=== PATIENT | male | born 1965 | race Caucasian/White ===

== ENCOUNTER 2017-08-15 08:38 | Emergency (ER) | payer SELFPAY ==
[~2017-08-15] VITALS: Ht 167.6 cm; Wt 99.8 kg
[~2017-08-15 08:38] MED LIST: CEPH-264 PO; LISI-334 PO; ONDA4TAB7 PO; RANI150T2 PO; SUCR1TAB35 PO
[2017-08-15] MEDS ORDERED: IV NORMAL SALINE 1,000ML 1,000 ML IV SCH (08:53)
--- NOTE | 2017-08-15 09:05 | PHYS DOC ---
Past History Past Medical History: Hypertension Past Surgical History: No Surgical History Smoking: Non-smoker Alcohol Use: None Drug Use: None Adult General Chief Complaint Chief Complaint: MULTIPLE COMPLAINTS HPI HPI Patient is a 52 year old male who presents with complaint of abdominal pain and bloody stools. Patient states that his abdominal pain and vomiting started approximately 3 days ago. Patient states that he has had history of bloody stools for the past year. Patient states that he had a colonoscopy completed within the last year which showed internal hemorrhoids and diverticulosis. Patient states that he has been treated for diverticulitis in the past. The patient states that he is currently having 9 out of 10 pain in his low back which she states is due to chronic bulging disc. Patient however is also having pain in his epigastrium which he rates as 8 out of 10. Patient states the pain in his back worsens with movement. Patient states that the blood in his stool is slightly more than usual for what he has had no past year. Review of Systems Review of Systems Constitutional: Denies fever or chills [] Eyes: Denies change in visual acuity, redness, or eye pain [] HENT: Denies nasal congestion or sore throat [] Respiratory: Denies cough or shortness of breath [] Cardiovascular: Denies chest pain or edema[] GI: Abdominal pain, nausea, vomiting, bloody stools[] : Denies dysuria or hematuria [] Musculoskeletal: Back pain[] Integument: Denies rash or skin lesions [] Neurologic: Denies headache, focal weakness or sensory changes [] Current Medications Current Medications Current Medications Medications (Trade) Dose Ordered Sig/[facility] Start Time Stop Time Status Last Admin Dose Admin Fentanyl Citrate (Fentanyl 2ml Vial) 50 mcg PRN Q15MIN PRN 08/15/17 09:00 08/16/17 08:59 Ondansetron HCl (Zofran) 4 mg 1X ONCE 08/15/17 09:15 08/15/17 09:16 Sodium Chloride 1,000 ml @ 1,000 mls/hr Q1H 08/15/17 08:53 08/15/17 09:52 Allergies Allergies Allergies Coded Allergies Type Severity Reaction Last Updated Verified No Known Drug Allergies 08/25/14 No Physical Exam Physical Exam Constitutional: Alert, afebrile, appears in moderate to severe discomfort. [] HENT: Normocephalic, atraumatic, bilateral external ears normal, oropharynx moist, no oral exudates, nose normal. [] Eyes: PERRLA, EOMI, conjunctiva normal, no discharge. [] Neck: Normal range of motion, no tenderness, supple, no stridor. [] Cardiovascular:Heart rate regular rhythm, no murmur [] Lungs & Thorax: Bilateral breath sounds clear to auscultation [] Abdomen: Bowel sounds normal, soft, mild epigastric tenderness to palpation, no guarding or rebound tenderness, no masses, no pulsatile masses. Rectal: Normal external exam, nontender on exam, brown stool, no visible blood[ ] Skin: Warm, dry, no erythema, no rash. [] Back: No midline tenderness, bilateral paraspinous muscle tenderness to palpation in the low lumbar spine. [] Extremities: No tenderness, no cyanosis, no clubbing, ROM intact, no edema. [] Neurologic: Alert and oriented X 3, normal motor function, normal sensory function, no focal deficits noted. [] Current Patient Data Vital Signs Vital Signs Date Time Temp Pulse Resp B/P (MAP) Pulse Ox O2 Delivery O2 Flow Rate FiO2 08/15/17 09:29 98.7 86 22 98 Room Air Lab Results Laboratory Tests Test 08/15/17 09:10 08/15/17 09:27 08/15/17 11:25 Stool Occult Blood Negative White Blood Count 12.7 x10^3/uL Red Blood Count 5.98 x10^6/uL Hemoglobin 17.4 g/dL Hematocrit 49.3 % Mean Corpuscular Volume 83 fL Mean Corpuscular Hemoglobin 29 pg Mean Corpuscular Hemoglobin Concent 35 g/dL Red Cell Distribution Width 13.4 % Platelet Count 377 x10^3/uL Neutrophils (%) (Auto) 72 % Lymphocytes (%) (Auto) 16 % Monocytes (%) (Auto) 10 % Eosinophils (%) (Auto) 1 % Basophils (%) (Auto) 1 % Neutrophils # (Auto) 9.1 x10^3uL Lymphocytes # (Auto) 2.1 x10^3/uL Monocytes # (Auto) 1.3 x10^3/uL Eosinophils # (Auto) 0.1 x10^3/uL Basophils # (Auto) 0.1 x10^3/uL Sodium Level 132 mmol/L Potassium Level 3.6 mmol/L Chloride Level 96 mmol/L Carbon Dioxide Level 27 mmol/L Anion Gap 9 Blood Urea Nitrogen 20 mg/dL Creatinine 1.3 mg/dL Estimated GFR (Cockcroft-Gault) 58.4 BUN/Creatinine Ratio 15 Glucose Level 166 mg/dL Calcium Level 9.5 mg/dL Total Bilirubin 1.6 mg/dL Aspartate Amino Transf (AST/SGOT) 14 U/L Alanine Aminotransferase (ALT/SGPT) 32 U/L Alkaline Phosphatase 71 U/L Total Protein 8.1 g/dL Albumin 3.9 g/dL Albumin/Globulin Ratio 0.9 Lipase 615 U/L Urine Collection Type Void Urine Color Caridad Urine Clarity Clear Urine pH 5.0 Urine Specific Annabella 1.015 Urine Protein Neg Urine Glucose (UA) Neg mg/dL Urine Ketones (Stick) 15 mg/dL Urine Blood Small Urine Nitrite Neg Urine Bilirubin Neg Urine Urobilinogen Dipstick 2 mg/dL Urine Leukocyte Esterase Neg Urine RBC Rare /HPF Urine WBC 1-4 /HPF Urine Squamous Epithelial Cells None /LPF Urine Bacteria 0 /HPF Urine Hyaline Casts Occ /HPF Urine Mucus Mod /LPF Current Medications Medications (Trade) Dose Ordered Sig/Renny Route PRN Reason Start Time Stop Time Status Last Admin Dose Admin Fentanyl Citrate (Fentanyl 2ml Vial) 50 mcg PRN Q15MIN PRN IV PAIN GREATER THAN 3/10 08/15/17 09:00 08/16/17 08:59 08/15/17 10:35 Sodium Chloride 1,000 ml @ 1,000 mls/hr Q1H IV 08/15/17 08:53 08/15/17 09:52 DC 08/15/17 09:10 Ondansetron HCl (Zofran) 4 mg 1X ONCE IV 08/15/17 09:15 08/15/17 09:16 DC 08/15/17 09:11 Sodium Chloride 1,000 ml @ 125 mls/hr 1X ONCE IV 08/15/17 10:45 08/15/17 18:44 Iohexol (Omnipaque 300 Mg/ml) 75 ml 1X ONCE IV 08/15/17 11:45 08/15/17 11:46 DC EKG EKG Not performed[] Radiology/Procedures Radiology/Procedures [address] [address] IMAGING REPORT Signed PATIENT: FABRIZIO KOTHARI ACCOUNT: [id number] : 1965 LOCATION: ER AGE: 52 SEX: M EXAM STATUS: REG ER ORD. PHYSICIAN: RADHA LITTLEJOHN MD REASON: abdominal pain, elevated lipase, leukocytosis PROCEDURE: CT ABD PELV W/ IV CONTRST ONLY Examination: CT of the abdomen pelvis with IV contrast History: History of elevated lipase, abdominal pain Comparison: 08/11/2014 Technique: Axial CT images of the abdomen pelvis were performed with IV contrast. Coronal and sagittal reformats were performed PQRS Compliance Statement: One or more of the following individualized dose reduction techniques were utilized for this examination: 1. Automated exposure control 2. Adjustment of the mA and/or kV according to patient size 3. Use of iterative reconstruction technique Findings: The visualized bibasal lungs grossly appears unremarkable. No evidence of free air identified in the abdomen. Mild decreased attenuation noted in the liver likely hepatic steatosis. The visualized spleen, adrenals grossly appears unremarkable. The bilateral kidneys enhance symmetrically. The stomach is mildly distended. The small bowel is nondilated. Appendix is normal. Mildly enlarged prostate gland. Feces and gas noted throughout the colon. Few sigmoid colon diverticulosis. Urinary bladder is well distended. No evidence of lytic or destructive lesion. Impression: 1. No CT evidence of pancreatitis. 2. Mild hepatic steatosis. 3. Few sigmoid colon diverticulosis. DICTATED AND SIGNED BY: URIEL ROY MD DATE: 08/15/17 1135 CC: RADHA LITTLJEOHN MD; ISAMAR FERRELL [address] [address] IMAGING REPORT Signed PATIENT: FABRIZIO KOTHARI ACCOUNT: [id number] : 1965 LOCATION: ER AGE: 52 SEX: M EXAM STATUS: REG ER ORD. PHYSICIAN: RADHA LITTLEJOHN MD REASON: epigastric pain, elevated lipase PROCEDURE: ABDOMEN LTD Examination: Ultrasound abdomen History: History of elevated lipase, epigastric pain Comparison: None available Findings: The pancreas is not visualized due to bowel gas. Bowel gas obscures evaluation of the aorta and IVC. No evidence of gallstones identified. The gallbladder wall thickness is normal. The common bile duct measures 2.6 mm in transverse dimension. Mild increased echogenicity noted throughout the liver likely hepatic steatosis. The right kidney measures 11.9 cm in length. Impression: 1. Mild increased echogenicity noted throughout the liver likely hepatic steatosis. 2. No evidence of gallstones. DICTATED AND SIGNED BY: URIEL ROY MD DATE: 08/15/17 1118 CC: RADHA LITTLEJOHN MD; [place] [address] IMAGING REPORT Signed PATIENT: FABRIZIO KOTHARI ACCOUNT: [id number] : 1965 LOCATION: ER AGE: 52 SEX: M EXAM STATUS: REG ER ORD. PHYSICIAN: RADHA LITTLEJOHN MD REASON: abdominal pain PROCEDURE: ACUTE ABDOMEN SERIES Examination: Acute abdomen series History: History of abdominal pain Comparison: 08/30/2014 Findings: The cardiomediastinal silhouette grossly appears unremarkable. There is no acute infiltrate or visualized pneumothorax. The bowel gas pattern appears unremarkable. Impression: 1. No acute cardiopulmonary findings. 2. Unremarkable bowel gas pattern. DICTATED AND SIGNED BY: URIEL ROY MD DATE: 08/15/17 0952 CC: RADHA LITTLEJOHN MD; ISAMAR FERRELL [] Course & Med Decision Making Course & Med Decision Making Pertinent Labs and Imaging studies reviewed. (See chart for details) Patient started on IV fluids, fentanyl, and Zofran. The patient's blood work showed mild leukocytosis and an elevated lipase level concerning for acute pancreatitis. Patient underwent additional advanced imaging including abdominal ultrasound and CT which did not reveal any notable acute findings. Etiology of acute pancreatitis is unclear at this time. On reevaluation, patient states his symptoms are improving at this time. Recommended that the patient continue on liquid diet and patient was prescribed Zofran, Pepcid, and Parker and advised follow-up with primary doctor in 1-2 days for reevaluation. Advised return emergency department for any worsening symptoms. Patient provided referral to Dr. Mitchell of GI to schedule follow-up in the next 1-2 weeks. Dragon Disclaimer Dragon Disclaimer This chart was dictated in whole or in part using Voice Recognition software in a busy, high-work load, and often noisy Emergency Department environment. It may contain unintended and wholly unrecognized errors or omissions. Departure Departure: Impression: Primary Impression: Acute pancreatitis Disposition: 01 HOME, SELF-CARE Condition: IMPROVED Referrals: ISAMAR FERRELL (PCP) BIANCA MITCHELL MD Patient Instructions: Acute Pancreatitis Additional Instructions: Follow-up in one to 2 days with your primary doctor for reevaluation. Return to the emergency department for any worsening symptoms. Scripts Famotidine (PEPCID) 20 Mg Tablet 1 TAB PO BID, #30 TAB 0 Refills Prov: RADHA LITTLEJOHN MD 08/15/17 Ondansetron (ZOFRAN ODT) 4 Mg Tab.rapdis 1 TAB SL Q6HRS Y for NAUSEA/VOMITING, #15 TAB Prov: RADHA LITTLEJOHN MD 08/15/17 Hydrocodone Bit/Acetaminophen (NORCO 5-325 TABLET) 1 Each Tablet 1-2 TAB PO Q4-6HRS Y for PAIN, #20 TAB Prov: RADHA LITTLEJOHN MD 08/15/17 Problem Qualifiers Primary Impression: Acute pancreatitis Pancreatitis type: other Acute pancreatitis complication: no infection or necrosis Qualified Codes: K85.80 - Other acute pancreatitis without necrosis or infection RADHA LITTLEJOHN MD Aug 15, 2017 09:05
[2017-08-15] MEDS ORDERED: ONDANSETRON PF 4 MG/2 ML VIAL. IV ONE (09:15)
[2017-08-15 09:22] LABS: FECAL OB PT NEGATIVE (NEG)
[2017-08-15 09:41] LABS: BASO # 0.1 x10^3/uL (0.0-0.2); BASO % 1 % (0-3); EOS # 0.1 x10^3/uL (0.0-0.7); EOS % 1 % (0-3); HEMATOCRIT 49.3 % (39.0-53.0); HEMOGLOBIN 17.4 g/dL (13.0-17.5); LYMPH # 2.1 x10^3/uL (1.0-4.8); LYMPH % 16 % (24-48); MEAN CORPUSCULAR HEMOGLOBIN 29 pg (25-35); MEAN CORPUSCULAR HGB CONC 35 g/dL (31-37); MEAN CORPUSCULAR VOLUME 83 fL (79-100); MONO # 1.3 x10^3/uL (0.0-1.1); MONO % 10 % (0-9); NEUT # 9.1 x10^3uL (1.8-7.7); NEUT % 72 % (31-73); PLATELET COUNT 377 x10^3/uL (140-400); RED BLOOD COUNT 5.98 x10^6/uL (4.30-5.70); RED CELL DISTRIBUTION WIDTH 13.4 % (11.5-14.5); WHITE BLOOD COUNT 12.7 x10^3/uL (4.0-11.0)
[2017-08-15 09:50] LABS: ALBUMIN 3.9 g/dL (3.4-5.0); ALBUMIN/GLOBULIN RATIO 0.9 (1.0-1.7); CALCIUM 9.5 mg/dL (8.5-10.1); CREATININE 1.3 mg/dL (0.7-1.3); GFR 58.4; POTASSIUM 3.6 mmol/L (3.5-5.1); TOTAL BILIRUBIN 1.6 mg/dL (0.2-1.0); TOTAL PROTEIN 8.1 g/dL (6.4-8.2)
--- NOTE | 2017-08-15 09:58 | RAD ---
Examination: Acute abdomen series History: History of abdominal pain Comparison: 08/30/2014 Findings: The cardiomediastinal silhouette grossly appears unremarkable. There is no acute infiltrate or visualized pneumothorax. The bowel gas pattern appears unremarkable. Impression: 1. No acute cardiopulmonary findings. 2. Unremarkable bowel gas pattern.
[2017-08-15] MEDS ORDERED: IV NORMAL SALINE 1,000ML 1,000 ML IV ONE (10:45)
--- NOTE | 2017-08-15 11:23 | RAD ---
Examination: Ultrasound abdomen History: History of elevated lipase, epigastric pain Comparison: None available Findings: The pancreas is not visualized due to bowel gas. Bowel gas obscures evaluation of the aorta and IVC. No evidence of gallstones identified. The gallbladder wall thickness is normal. The common bile duct measures 2.6 mm in transverse dimension. Mild increased echogenicity noted throughout the liver likely hepatic steatosis. The right kidney measures 11.9 cm in length. Impression: 1. Mild increased echogenicity noted throughout the liver likely hepatic steatosis. 2. No evidence of gallstones.
[2017-08-15 11:42] LABS: BACTERIA,URINE 0 /HPF (0-FEW); BILIRUBIN,URINE NEG (NEG); CLARITY,URINE CLEAR; COLOR,URINE AMBER; GLUCOSE,URINE NEG (NEG); NITRITE,URINE NEG (NEG); RBC,URINE RARE /HPF (0-2); UROBILINOGEN,URINE 2 mg/dL (0.2 mg/dL)
[2017-08-15 11:43] LABS: HYALINE CASTS, URINE OCC /HPF
--- NOTE | 2017-08-15 11:44 | RAD ---
Examination: CT of the abdomen pelvis with IV contrast History: History of elevated lipase, abdominal pain Comparison: 08/11/2014 Technique: Axial CT images of the abdomen pelvis were performed with IV contrast. Coronal and sagittal reformats were performed PQRS Compliance Statement: One or more of the following individualized dose reduction techniques were utilized for this examination: 1. Automated exposure control 2. Adjustment of the mA and/or kV according to patient size 3. Use of iterative reconstruction technique Findings: The visualized bibasal lungs grossly appears unremarkable. No evidence of free air identified in the abdomen. Mild decreased attenuation noted in the liver likely hepatic steatosis. The visualized spleen, adrenals grossly appears unremarkable. The bilateral kidneys enhance symmetrically. The stomach is mildly distended. The small bowel is nondilated. Appendix is normal. Mildly enlarged prostate gland. Feces and gas noted throughout the colon. Few sigmoid colon diverticulosis. Urinary bladder is well distended. No evidence of lytic or destructive lesion. Impression: 1. No CT evidence of pancreatitis. 2. Mild hepatic steatosis. 3. Few sigmoid colon diverticulosis.
[2017-08-15] MEDS ORDERED: IOHEXOL 300 MG/ML 75 ML VIAL. IV ONE (11:45)
[2017-08-15] MEDS ORDERED: ONDA4TAB10 SL (12:04)
[2017-08-15] MEDS ORDERED: FAMO-63 PO (12:04)
[2017-08-15] MEDS ORDERED: HYDR-971 PO (12:04)
[2017-08-15 13:09] VITALS: BP 142/84
== END 2017-08-15 13:00 | disposition home or self-care (01) ==
LOC: ER 08:38
DX: K85.90 Acute pancreatitis without necrosis or infection, unspecified (principal); I10 Essential (primary) hypertension
CPT/HCPCS: 36415; 74022; 74177; 76705; 80053; 81001; 82274; 83690; 85025; 96361; 96374; 96375; 96376; 99285; J2405; J3010; J7030

== ENCOUNTER 2020-12-26 17:37 | Emergency (ER) | payer MEDICARE, MEDICAID ==
[~2020-12-26] VITALS: Ht 167.6 cm; Wt 102.4 kg
[~2020-12-26 17:37] MED LIST changes: +FAMO-63 PO; +HYDR-3165 PO; -LISI-334 PO; +LISI20TA18 PO; +ONDA4TAB10 SL
--- NOTE | 2020-12-26 18:00 | PHYS DOC ---
Past History Past Medical History: Diverticulitis, Diabetes, High Cholesterol, Hypertension Past Surgical History: Cholecystectomy, Other Past Surgical History hernia Smoking: Non-smoker Alcohol Use: None Drug Use: None General Adult EDM: Chief Complaint: ABDOMINAL PAIN HPI: HPI: Patient is a 55 year old male who presents with above hx and complaints of nausea, abd. pain, HTN, DM.. Pt. follows with Luz Winter. Hx of Cholecystectomy, Hernia repair. No history of travel. No history of contacts. No recent bad food intake. No history immunosuppression. Patient denies any tarry stools. Review of Systems: Review of Systems: Constitutional: Denies fever or chills Eyes: Denies change in visual acuity HENT: Denies nasal congestion or sore throat Respiratory: Denies cough or shortness of breath Cardiovascular: Denies chest pain or edema GI: Complains of abdominal pain, nausea, vomiting,. Denies bloody stools or diarrhea : Denies dysuria Musculoskeletal: Denies back pain or joint pain Integument: Denies rash Neurologic: Denies headache, focal weakness or sensory changes Endocrine: Denies polyuria or polydipsia Lymphatic: Denies swollen glands Psychiatric: Denies depression or anxiety Family History: Family History: Noncontributory to presentation Current Medications: Current Meds: See nursing for home meds Allergies: Allergies: Allergies Coded Allergies Type Severity Reaction Last Updated Verified No Known Drug Allergies 08/25/14 No Physical Exam: PE: Constitutional: Well developed, well nourished, no acute distress, non-toxic appearance. [] HENT: Normocephalic, atraumatic, bilateral external ears normal, oropharynx moist, no oral exudates, nose normal. [] Eyes: PERRLA, EOMI, conjunctiva normal, no discharge. [] Neck: Normal range of motion, no tenderness, supple, no stridor. [] Cardiovascular:Heart rate regular rhythm, no murmur [] Lungs & Thorax: Bilateral breath sounds clear to auscultation [] Abdomen: Bowel sounds hyperactive, soft, generalized tenderness, no masses, no pulsatile masses. [] Skin: Warm, dry, no erythema, no rash. [] Back: No tenderness, no CVA tenderness. [] Extremities: No tenderness, no cyanosis, no clubbing, ROM intact, no edema. No cording appreciated Neurologic: Alert and oriented X 3, normal motor function, normal sensory function, no focal deficits noted. [] Psychologic: Affect normal, judgement normal, mood normal. [] EKG: EKG: Interpretation EKG shows sinus rhythm at 60 bpm. Left axis. No findings acute STEMI of contralateral changes Radiology/Procedures: Radiology/Procedures: [[address] [address] IMAGING REPORT Signed PATIENT: FABRIZIO KOTHARI ACCOUNT: [id number] : 1965 LOCATION: ER AGE: 55 SEX: M EXAM STATUS: REG ER ORD. PHYSICIAN: NARAYAN SAHU MD REASON: ABD PAIN, N/V- STARTED DRINKING 624 - NEEDS ZOFRAN PROCEDURE: CT ABD PELV W/ORAL&IV CONTRAST CT abdomen pelvis with contrast. HISTORY: Nausea and vomiting CT abdomen pelvis was done using 60 mL Omnipaque 300 contrast. Comparison is made with a study from July 2017 lung bases are clear. Pancreas is unremarkable. Spleen is normal. There is a small accessory spleen. There is no calcified gallstone. Liver is normal in appearance. There is no mass or hydronephrosis in the kidneys. There is no retroperitoneal adenopathy. There is no free air or ascites. There is no small bowel obstruction. Appendix is normal. There is mild diverticulosis without diverticulitis. IMPRESSION: 1. No abdominal or pelvic mass or acute finding noted. 2. No bowel obstruction. 3. Normal appendix. PQRS Compliance Statement: One or more of the following individualized dose reduction techniques were utilized for this examination: 1. Automated exposure control 2. Adjustment of the mA and/or kV according to patient size 3. Use of iterative reconstruction technique Electronically signed by: Quentin Hendrix MD (12/26/2020 7:32 PM) [id number] DICTATED AND SIGNED BY: QUENTIN HENDRIX MD DATE: 12/26/201925 CC: NARAYAN SAHU MD; ISAMAR FERRELL MD ~MTH0 0 ] IMAGING REPORT Signed PATIENT: FABRIZIO KOTHARI ACCOUNT: [id number] : 1965 LOCATION: ER AGE: 55 SEX: M EXAM STATUS: REG ER ORD. PHYSICIAN: NARAYAN SAHU MD REASON: pain PROCEDURE: ACUTE ABDOMEN SERIES Three-view acute abdominal series. HISTORY: Pain 3 views were taken for an acute abdominal series. Lungs are clear. Heart is normal in size. There is no pleural effusion. There is an old right clavicle fracture. There is no free air on the upright view of the abdomen. Bowel pattern is unremarkable. There are no abnormal calcifications. IMPRESSION: 1. No acute chest disease. 2. No bowel obstruction or acute finding in the abdomen. Electronically signed by: Quentin Hendrix MD (12/26/2020 6:41 PM) [id number] DICTATED AND SIGNED BY: QUENTIN HENDRIX MD DATE: 12/26/201835 CC: NARAYAN SAHU MD; ISAMAR FERRELL MD ~MTH0 0 Heart Score: C/O Chest Pain: N/A HEART Score for Chest Pain: HEART Score for Chest Pain Response (Comments) Value History Slighlty/Non-Suspicious 0 ECG Normal 0 Age < 45 0 Risk Factors No Risk Factors 0 Troponin < Normal Limit 0 Total 0 Risk Factors: Risk Factors: DM, Current or recent (<one month) smoker, HTN, HLP, family history of CAD, obesity. Risk Scores: Score 0 - 3: 2.5% MACE over next 6 weeks - Discharge Home Score 4 - 6: 20.3% MACE over next 6 weeks - Admit for Clinical Observation Score 7 - 10: 72.7% MACE over next 6 weeks - Early Invasive Strategies Course & Med Decision Making: Course & Med Decision Making Pertinent Labs and Imaging studies reviewed. (See chart for details) Patient seen on clear fluid diet only. Tylenol and ibuprofen for discomfort. Follow-up primary care. Reexam if no improvement. Follow-up primary care. Impression; 1. Abdomen pain 2. Viral syndrome 3. Mild leukocytosis 16.8 [] Dragon Disclaimer: Dragon Disclaimer: This electronic medical record was generated, in whole or in part, using a voice recognition dictation system. Departure Departure: Referrals: ISAMAR FERRELL MD (PCP) Scripts Ondansetron Hcl (ZOFRAN) 4 Mg Tablet 8 MG PO QIDPRN PRN for n, #30 TAB Prov: NARAYAN SAHU MD 12/26/20 Famotidine (PEPCID) 20 Mg Tablet 20 MG PO BID for gerd for 30 Days, #60 TAB Prov: NARAYAN SAHU MD 12/26/20 Lisbethchang Disclaimer This chart was dictated in whole or in part using Voice Recognition software in a busy, high-work load, and often noisy Emergency Department environment. It may contain unintended and wholly unrecognized errors or omissions. NARAYAN SAHU MD Dec 26, 2020 18:00
--- NOTE | 2020-12-26 18:10 | EKG ---
[address] [address] Test Date: 2020-12-26 Test Time: 17:46:42 Pat Name: FABRIZIO KOTHARI Department: Room: Gender: M Outsole Compressor: SABINE : 1965 Requested By: NARAYAN SAHU Order Number: [id number] Reading MD: Measurements Intervals Elsie Rate: 68 P: 14 ME: 176 QRS: -4 QRSD: 80 T: 13 QT: 372 QTc: 400 Interpretive Statements SINUS RHYTHM LEFTWARD AXIS OTHERWISE NORMAL ECG RI6.02 No previous ECG available for comparison
[2020-12-26] MEDS ORDERED: ONDANSETRON PF 4 MG/2 ML VIAL. IVP ONE (18:15)
[2020-12-26] MEDS ORDERED: LIDO:MAALOX 1:1 20 ML SINGLE DOSE. PO ONE (18:15)
[2020-12-26] MEDS ORDERED: IOHEXOL 240 MG/ML 50ML VIAL. PO ONE (18:15)
[2020-12-26] MEDS ORDERED: CONTRAST GIVEN. MC PRN (18:15)
[2020-12-26] MEDS ORDERED: IOHEXOL 300 MG/ML 75 ML VIAL. IV ONE (18:15)
[2020-12-26] MEDS ORDERED: IV RINGERS SOLUTION,LACTATED 1,000 ML IV SCH (18:15)
[2020-12-26] MEDS ORDERED: KETOROLAC 30 MG/ML VIAL. IVP ONE (18:15)
[2020-12-26] MEDS ORDERED: FAMOTIDINE 20 MG/2 ML VIAL IVP ONE (18:15)
[2020-12-26 18:33] LABS: BARBITURATES NEG (NEG); BASO # 0.1 x10^3/uL (0.0-0.2); BASO % 1 % (0-3); BENZODIAZEPINES NEG (NEG); CANNABINOIDS POS (NEG); COCAINE NEG (NEG); EOS # 0.1 x10^3/uL (0.0-0.7); EOS % 1 % (0-3); HEMATOCRIT 42.4 % (39.0-53.0); HEMOGLOBIN 13.8 g/dL (13.0-17.5); LYMPH # 1.1 x10^3/uL (1.0-4.8); LYMPH % 7 % (24-48); MEAN CORPUSCULAR HEMOGLOBIN 27 pg (25-35); MEAN CORPUSCULAR HGB CONC 33 g/dL (31-37); MEAN CORPUSCULAR VOLUME 82 fL (79-100); METHADONE NEG (NEG); MONO % 6 % (0-9); NEUT # 14.5 x10^3uL (1.8-7.7); NEUT % 86 % (31-73); OPIATES NEG (NEG); PHENCYCLIDINE NEG (NEG); PLATELET COUNT 343 x10^3/uL (140-400); RED BLOOD COUNT 5.18 x10^6/uL (4.30-5.70); WHITE BLOOD COUNT 16.8 x10^3/uL (4.0-11.0)
[2020-12-26 18:34] LABS: AMPHETAMINE/METHAMPHETAMINE NEG (NEG); CREATININE 1.1 mg/dL (0.7-1.3); POTASSIUM 3.8 mmol/L (3.5-5.1)
[2020-12-26 18:40] LABS: ALBUMIN 3.6 g/dL (3.4-5.0); DIRECT BILIRUBIN 0.1 mg/dL (0.0-0.2); TOTAL BILIRUBIN 0.4 mg/dL (0.2-1.0); TOTAL PROTEIN 7.1 g/dL (6.4-8.2)
[2020-12-26 18:41] LABS: BACTERIA,URINE 0 /HPF (0-FEW); BILIRUBIN,URINE NEG (NEG); CLARITY,URINE CLEAR; COLOR,URINE YELLOW; GLUCOSE,URINE NEG (NEG); NITRITE,URINE NEG (NEG); UROBILINOGEN,URINE 0.2 mg/dL (0.2 mg/dL); WBC,URINE 0 /HPF (0-4)
--- NOTE | 2020-12-26 18:43 | RAD ---
Three-view acute abdominal series. HISTORY: Pain 3 views were taken for an acute abdominal series. Lungs are clear. Heart is normal in size. There is no pleural effusion. There is an old right clavicle fracture. There is no free air on the upright vie w of the abdomen. Bowel pattern is unremarkable. There are no abnormal calcifications. IMPRESSION: 1. No acute chest disease. 2. No bowel obstruction or acute finding in the abdomen. Electronically signed by: Quentin Hendrix MD (12/26/2020 6:41 PM) [id number]
--- NOTE | 2020-12-26 19:34 | RAD ---
CT abdomen pelvis with contrast. HISTORY: Nausea and vomiting CT abdomen pelvis was done using 60 mL Omnipaque 300 contrast. Comparison is made with a study from O ctober 2017 lung bases are clear. Pancreas is unremarkable. Spleen is normal. There is a small access ory spleen. There is no calcified gallstone. Liver is normal in appearance. There is no mass or hydro nephrosis in the kidneys. There is no retroperitoneal adenopathy. There is no free air or ascites. Th ere is no small bowel obstruction. Appendix is normal. There is mild diverticulosis without diverticu litis. IMPRESSION: 1. No abdominal or pelvic mass or acute finding noted. 2. No bowel obstruction. 3. Normal appendix. PQRS Compliance Statement: One or more of the following individualized dose reduction techniques were utilized for this examinat ion: 1. Automated exposure control 2. Adjustment of the mA and/or kV according to patient size 3. Use of iterative reconstruction technique Electronically signed by: Quentin Hendrix MD (12/26/2020 7:32 PM) [id number]
[2020-12-26 20:03] VITALS: BP 158/100
[2020-12-26] MEDS ORDERED: FAMO-63 PO (20:15)
[2020-12-26] MEDS ORDERED: ONDA4TAB7 PO (20:15)
[2020-12-26 21:17] LABS: % BASOS 2 % (0-3); % LYMPHS 11 % (24-48); % MONOS 2 % (0-10); % SEGS 85 % (35-66); PLT ESTIMATE ADEQUATE (ADEQUATE)
== END 2020-12-26 20:26 | disposition home or self-care (01) ==
LOC: ER 17:37
DX: B34.9 Viral infection, unspecified (principal); R10.84 Generalized abdominal pain; D72.828 Other elevated white blood cell count; R11.2 Nausea with vomiting, unspecified; E78.00 Pure hypercholesterolemia, unspecified; I10 Essential (primary) hypertension; E11.9 Type 2 diabetes mellitus without complications; Z90.49 Acquired absence of other specified parts of digestive tract; Z98.890 Other specified postprocedural states
CPT/HCPCS: 36415; 74022; 74177; 80048; 80076; 80307; 81001; 82550; 83690; 84484; 85007; 85025; 85610; 85730; 93005; 96361; 96374; 96375; 99285; J1885; J2405; J3490; J7120; Q9966; Q9967

== ENCOUNTER 2021-03-31 10:17 | Emergency (ER) | payer MEDICARE, MEDICAID ==
[~2021-03-31] VITALS: Ht 167.6 cm; Wt 97.5 kg
--- NOTE | 2021-03-31 10:45 | PHYS DOC ---
Past History Past Medical History: Diverticulitis, Hypertension Past Surgical History: Cholecystectomy, Other Smoking: Non-smoker Alcohol Use: None Drug Use: None Adult General Chief Complaint Chief Complaint: SHORTNESS OF BREATH HPI HPI Patient is a 55-year-old male presenting for generalized malaise, body aches and shortness of breath. Onset was approximately 1 week ago. Reports initially suffering URI-like symptoms and further developed generalized malaise, body aches most present in arms and legs, dry nonproductive cough and ongoing rhinorrhea. Reports he tried to get seen by his primary care physician at [facility] but could not get in today prompting him to be referred to our ER for evaluation. No recent sick contacts, no known COVID-19 exposure, he has not received any other COVID-19 vaccines, no recent travel, no fever, chest pain, ripping or tearing sensation in chest, abdominal pain, dysuria. States he has not had an appetite for a while. No prior history of coronary artery disease or other concerning cardiac diagnoses Review of Systems Review of Systems Fourteen body systems of review of systems have been reviewed. See HPI for per tinent positives and negative responses, other powell all other systems are negative, non-pertinent or non-contributory Allergies Allergies Allergies Coded Allergies Type Severity Reaction Last Updated Verified No Known Drug Allergies 03/31/21 No Physical Exam Physical Exam Constitutional: Well developed, well nourished, no acute distress, non-toxic appearance. HENT: Normocephalic, atraumatic, bilateral external ears normal, oropharynx moist, no oral exudates, nose normal. Eyes: PERRLA, EOMI, conjunctiva normal, no discharge. Neck: Normal range of motion, no tenderness, supple, no stridor. Cardiovascular: Heart rate regular, sinus rhythm, no murmurs rubs or gallops Lungs & Thorax: Bilateral breath sounds clear to auscultation Abdomen: Bowel sounds normal, soft, no tenderness, no masses, no pulsatile masses. Nonsurgical abdomen, no peritoneal signs Skin: Warm, dry, no erythema, no rash. Back: No tenderness, no CVA tenderness. Extremities: No tenderness, no cyanosis, no clubbing, ROM intact, no edema. Neurologic: Alert and oriented X 3, grossly normal motor & sensory function, no focal deficits noted. Psychologic: Affect normal, judgement normal, mood normal. Current Patient Data Vital Signs Vital Signs Date Time Temp Pulse Resp B/P (MAP) Pulse Ox O2 Delivery O2 Flow Rate FiO2 03/31/21 10:35 98.1 100 29 110/73 (85) 98 Room Air Vital Signs Date Time Temp Pulse Resp B/P (MAP) Pulse Ox O2 Delivery O2 Flow Rate FiO2 03/31/21 10:35 98.1 100 29 110/73 (85) 98 Room Air Lab Results Laboratory Tests Test 03/31/21 11:18 White Blood Count 14.0 x10^3/uL Red Blood Count 5.49 x10^6/uL Hemoglobin 14.5 g/dL Hematocrit 43.1 % Mean Corpuscular Volume 79 fL Mean Corpuscular Hemoglobin 27 pg Mean Corpuscular Hemoglobin Concent 34 g/dL Red Cell Distribution Width 15.3 % Platelet Count 339 x10^3/uL Neutrophils (%) (Auto) 78 % Lymphocytes (%) (Auto) 9 % Monocytes (%) (Auto) 12 % Eosinophils (%) (Auto) 0 % Basophils (%) (Auto) 0 % Neutrophils # (Auto) 10.9 x10^3uL Lymphocytes # (Auto) 1.3 x10^3/uL Monocytes # (Auto) 1.6 x10^3/uL Eosinophils # (Auto) 0.1 x10^3/uL Basophils # (Auto) 0.1 x10^3/uL Sodium Level 135 mmol/L Potassium Level 3.4 mmol/L Chloride Level 98 mmol/L Carbon Dioxide Level 21 mmol/L Anion Gap 16 Blood Urea Nitrogen 13 mg/dL Creatinine 1.1 mg/dL Estimated GFR (Cockcroft-Gault) 70.0 BUN/Creatinine Ratio 12 Glucose Level 162 mg/dL Calcium Level 9.2 mg/dL Total Bilirubin 0.9 mg/dL Aspartate Amino Transf (AST/SGOT) 19 U/L Alanine Aminotransferase (ALT/SGPT) 51 U/L Alkaline Phosphatase 83 U/L Troponin I Quantitative < 0.017 ng/mL Total Protein 7.3 g/dL Albumin 3.8 g/dL Albumin/Globulin Ratio 1.1 Current Medications Medications (Trade) Dose Ordered Sig/Renny Route PRN Reason Start Time Stop Time Status Last Admin Dose Admin Sodium Chloride 1,000 ml @ 1,000 mls/hr 1X ONCE IV 03/31/21 11:00 03/31/21 11:59 DC 03/31/21 11:12 Ondansetron HCl (Zofran) 4 mg 1X ONCE IVP 03/31/21 11:45 03/31/21 11:46 DC 03/31/21 11:47 EKG EKG Mostly because of EKG ordered and interpreted by myself at 1044 hrs. as sinus rhythm at 95 bpm, unremarkable intervals, left axis deviation, no acute ischemic findings, no STEMI Radiology/Procedures Radiology/Procedures EXAMINATION: XR CHEST 1V. HISTORY: 55 years Male Reason: cough . COMPARISON: November 23, 2014. Findings: The lungs are clear. The heart size is normal. There is no effusion or pneumothorax. The mediastinum and fred appear unremarkable. Impression: Unremarkable study. Electronically signed by: Durga Oscar MD (03/31/2021 12:17 PM) [id number] Heart Score C/O Chest Pain: No HEART Score for Chest Pain: HEART Score for Chest Pain Response (Comments) Value History Slighlty/Non-Suspicious 0 ECG Normal 0 Age >45 - < 65 1 Risk Factors 1 or 2 Risk Factors 1 Troponin < Normal Limit 0 Total 2 Risk Factors: Risk Factors: DM, Current or recent (<one month) smoker, HTN, HLP, family history of CAD, obesity. Risk Scores: Risk Factors: DM, Current or recent (<one month) smoker, HTN, HLP, family hi story of CAD, obesity. Course & Med Decision Making Course & Med Decision Making Discussed with the patient all findings and diagnostic testing. I discussed most likely diagnosis of likely self-limiting pathology such as a viral illness and so, joint decision to test for COVID-19. I reviewed heart score in ER findings as discussed, no indication for further diagnostic work-up and/or need for hospitalization at present. Joint decision made to discharge home with self quarantine instructions, and continued supportive care practices. I stressed need for close outpatient follow-up to review today's ER visit when safe to do so. Strict return precautions were also discussed at length with good understanding by patient. Patient voiced understanding and agreement with the plan. Patient knows to come back for repeat evaluation if concerning signs or symptoms present prior to outpatient follow-up. Hemodynamically stable, ambulatory and well-appearing at time of disposition. Dragon Disclaimer Dragon Disclaimer This electronic medical record was generated, in whole or in part, using a voice recognition dictation system. Departure Departure: Impression: Primary Impression: Person under investigation for COVID-19 Additional Impression: Viral syndrome Disposition: HOME / SELF CARE / HOMELESS Condition: STABLE Referrals: ISAMAR FERRELL MD (PCP) Patient Instructions: Viral Syndrome Additional Instructions: You were seen for a constellation of nonspecific symptoms such as shortness of breath, body aches, and possible infection with COVID-19. Your physical exam was reassuring. Your chest x-ray was normal. We tested you for COVID-19 but this test does not come back for 1 to 2 days. In the meantime you need to quarantine yourself at home away from all other individuals, especially those who are elderly or have any other chronic health issues or an immunocompromised status. You should return to the ED if you develop worsening cough, shortness of breath, chest pain, or any other new or concerning symptoms. Alternate Tylenol and ibuprofen as needed for body aches and pain. If your test does come back positive you need to quarantine yourself for 10 days until symptom-free. You should make sure to drink plenty of fluids and get plenty of rest. Scripts Ondansetron (ONDANSETRON ODT) 4 Mg Tab.rapdis 1 TAB PO PRN Q6-8HRS for nausea, #16 TAB Prov: ANTOINETTE ECHAVARRIA DO 03/31/21 Problem Qualifiers ANTOINETTE ECHAVARRIA DO Mar 31, 2021 10:45
[2021-03-31] MEDS ORDERED: IV NORMAL SALINE 1,000ML 1,000 ML IV ONE (11:00)
--- NOTE | 2021-03-31 11:05 | EKG ---
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
[2021-03-31 11:39] LABS: BASO # 0.1 x10^3/uL (0.0-0.2); BASO % 0 % (0-3); EOS # 0.1 x10^3/uL (0.0-0.7); EOS % 0 % (0-3); HEMATOCRIT 43.1 % (39.0-53.0); HEMOGLOBIN 14.5 g/dL (13.0-17.5); LYMPH # 1.3 x10^3/uL (1.0-4.8); LYMPH % 9 % (24-48); MEAN CORPUSCULAR HEMOGLOBIN 27 pg (25-35); MEAN CORPUSCULAR HGB CONC 34 g/dL (31-37); MEAN CORPUSCULAR VOLUME 79 fL (79-100); MONO # 1.6 x10^3/uL (0.0-1.1); MONO % 12 % (0-9); NEUT # 10.9 x10^3uL (1.8-7.7); NEUT % 78 % (31-73); PLATELET COUNT 339 x10^3/uL (140-400); RED BLOOD COUNT 5.49 x10^6/uL (4.30-5.70); RED CELL DISTRIBUTION WIDTH 15.3 % (11.5-14.5)
[2021-03-31] MEDS ORDERED: ONDANSETRON PF 4 MG/2 ML VIAL. IVP ONE (11:45)
[2021-03-31 11:46] LABS: CALCIUM 9.2 mg/dL (8.5-10.1); CREATININE 1.1 mg/dL (0.7-1.3); POTASSIUM 3.4 mmol/L (3.5-5.1)
[2021-03-31 11:52] LABS: ALBUMIN 3.8 g/dL (3.4-5.0); ALBUMIN/GLOBULIN RATIO 1.1 (1.0-1.7); TOTAL BILIRUBIN 0.9 mg/dL (0.2-1.0); TOTAL PROTEIN 7.3 g/dL (6.4-8.2)
--- NOTE | 2021-03-31 12:19 | RAD ---
Site ID: [id number] EXAMINATION: XR CHEST 1V. HISTORY: 55 years Male Reason: cough . COMPARISON: November 23, 2014. Findings: The lungs are clear. The heart size is normal. There is no effusion or pneumothorax. The mediastinum and fred appear unremarkable. Impression: Unremarkable study. Electronically signed by: Durga Oscar MD (03/31/2021 12:17 PM) [id number]
[2021-03-31] MEDS ORDERED: ONDA4TAB12 PO (12:43)
[2021-03-31 12:53] VITALS: BP 121/81
== END 2021-03-31 12:53 | disposition home or self-care (01) ==
LOC: ER 10:17
DX: B34.9 Viral infection, unspecified (principal); I10 Essential (primary) hypertension; Z20.822 Contact with and (suspected) exposure to COVID-19; Z90.49 Acquired absence of other specified parts of digestive tract
CPT/HCPCS: 36415; 71045; 80053; 84484; 85025; 93005; 96361; 96374; 99285; C9803; J2405; J7030; U0003

== ENCOUNTER 2021-07-17 00:38 | Emergency (ER) | payer MEDICARE, MEDICAID ==
[~2021-07-17] VITALS: Ht 167.6 cm; Wt 86.6 kg
[~2021-07-17 00:38] MED LIST changes: +ONDA4TAB12 PO
[2021-07-17 00:40] VITALS: BP 132/94
--- NOTE | 2021-07-17 00:40 | PHYS DOC ---
Past History Past Medical History: Anxiety, Arthritis, Diverticulitis, GERD, High Cholesterol, Hypertension, Sciatica, Other Additional Past Medical Histor: disc disease, blood in urine and stool, mul tiple concussions Past Medical History Chronic cervical and lumbar pain-cervical neuropathy and sciatica Past Surgical History: Cholecystectomy, Other Additional Past Surgical Histo: colon repair; abd hernia repair Past Surgical History Gastric bypass 05/2021 Smoking: Non-smoker Alcohol Use: None Drug Use: None General Adult HPI: HPI: "...I was doing stuff I should not do..I am not to lift ever more than 20 pounds because of my neck and low back problems.. But I could not get any one to help me move..so I ve been moving everything the past three days..and I got my self into a mess..I need some muscle relaxer..no narcotics.." Patient is a 55 year old male who presents with above hx and complaints increase in his cervical neuropathy. Pain is primarily in left trapezius coming off his neck. Patient also having some exacerbation of his sciatic complaints. Patient denies any problems with defecation or urination. Patient does have a guarded g ait because of chronic low back pain and walks with a cane. Patient denies any fever or chills. Patient denies any history of cancer. Patient denies any history of immunosuppression. Patient denies any IV drug use. Patient has recently lost 60 pounds since his gastric bypass done [facility]. No history of recent travel. No history of ill contacts. Review of Systems: Review of Systems: Constitutional: Denies fever or chills Eyes: Denies change in visual acuity HENT: Denies nasal congestion or sore throat Respiratory: Denies cough or shortness of breath Cardiovascular: Denies chest pain or edema GI: Denies abdominal pain, nausea, vomiting, bloody stools or diarrhea : Denies dysuria Musculoskeletal: Complains of upper neck, trapezius and lumbosacral pain Integument: Denies rash Neurologic: Denies headache, focal weakness or sensory changes Endocrine: Denies polyuria or polydipsia Lymphatic: Denies swollen glands Psychiatric: Denies depression or anxiety Family History: Family History: Noncontributory to presentation Current Medications: Current Meds: See nursing for home meds Allergies: Allergies: Allergies Coded Allergies Type Severity Reaction Last Updated Verified No Known Drug Allergies 03/31/21 No Physical Exam: PE: Constitutional: no acute distress, non-toxic appearance. [] HENT: Normocephalic, atraumatic, bilateral external ears normal, oropharynx moist, no oral exudates, nose normal. [] Eyes: PERRLA, EOMI, conjunctiva normal, no discharge. [] Neck: Patient limits the range of motion, because of muscular tenderness, supple , no stridor. [] Cardiovascular:Heart rate regular rhythm, no murmur [] Lungs & Thorax: Bilateral breath sounds equal apex with few scattered wheezes on auscultation [] Abdomen: Bowel sounds normal, soft, no tenderness, no masses, no pulsatile masses. Multiple old surgery scars. Bariatric surgery scars appear to be healed well. Skin: Warm, dry, no erythema, no rash. [] Back: Trapezius and lumbar sacral tenderness, no CVA tenderness. [] Muscle spasms. Tenderness along sciatic nerves bilaterally. Old surgery scars. Extremities: No tenderness, no cyanosis, no clubbing, ROM intact, no edema. [] Neurologic: Alert and oriented X 3, guarded motor function, has distal sensory function, no focal deficits noted. DTRs +2 patella and brachial. Certified Control Systems Technician equal. Right-hand dominant. Psychologic: Affect anxious,, judgement normal, mood normal. [] EKG: EKG: [] Radiology/Procedures: Radiology/Procedures: [] Heart Score: C/O Chest Pain: N/A Risk Factors: Risk Factors: DM, Current or recent (<one month) smoker, HTN, HLP, family history of CAD, obesity. Risk Scores: Score 0 - 3: 2.5% MACE over next 6 weeks - Discharge Home Score 4 - 6: 20.3% MACE over next 6 weeks - Admit for Clinical Observation Score 7 - 10: 72.7% MACE over next 6 weeks - Early Invasive Strategies Course & Med Decision Making: Course & Med Decision Making Pertinent Labs and Imaging studies reviewed. (See chart for details) Patient is ice packs as needed. Patient follow-up primary care. Patient take Tylenol and ibuprofen for pain. Patient return if any concerns. Patient reports marked improvement of muscle spasms after Toradol, Norflex and Ativan Impression: 1. Cervical neuropathy 2. Sciatica bilateral 3. History of chronic pain 4. Diabetes 5. Hypertension [] Dragon Disclaimer: Dragon Disclaimer: This electronic medical record was generated, in whole or in part, using a voice recognition dictation system. Departure Departure: Referrals: ISAMAR FERRELL MD (PCP) Momo Disclaimer This chart was dictated in whole or in part using Voice Recognition software in a busy, high-work load, and often noisy Emergency Department environment. It may contain unintended and wholly unrecognized errors or omissions. Dragon Disclaimer This chart was dictated in whole or in part using Voice Recognition software in a busy, high-work load, and often noisy Emergency Department environment. It may contain unintended and wholly unrecognized errors or omissions. Dragon Disclaimer This chart was dictated in whole or in part using Voice Recognition software in a busy, high-work load, and often noisy Emergency Department environment. It may contain unintended and wholly unrecognized errors or omissions. NARAYAN SAHU MD Jul 17, 2021 00:40
[2021-07-17 01:58] LABS: BARBITURATES NEG (NEG); BENZODIAZEPINES NEG (NEG); CANNABINOIDS POS (NEG); COCAINE NEG (NEG); METHADONE NEG (NEG); OPIATES NEG (NEG); PHENCYCLIDINE NEG (NEG)
[2021-07-17 01:59] LABS: BILIRUBIN,URINE SMALL (NEG); CLARITY,URINE CLEAR; COLOR,URINE YELLOW; GLUCOSE,URINE NEG (NEG)
[2021-07-17 02:00] LABS: BACTERIA,URINE FEW /HPF (0-FEW); NITRITE,URINE NEG (NEG); RBC,URINE OCC /HPF (0-2); SQUAMOUS EPITHELIAL CELL,UR FEW /LPF; UROBILINOGEN,URINE 0.2 mg/dL (0.2 mg/dL); WBC,URINE OCC /HPF (0-4)
[2021-07-17] MEDS ORDERED: KETOROLAC 60 MG/2 ML VIAL. IM ONE (02:00)
[2021-07-17] MEDS ORDERED: ORPHENADRINE CITRATE 60 MG/2 ML VIAL. IM ONE (02:00)
[2021-07-17] MEDS ORDERED: LORazepam 1 MG TABLET PO ONE (02:00)
[2021-07-17 02:01] LABS: AMPHETAMINE/METHAMPHETAMINE NEG (NEG)
== END 2021-07-17 01:49 | disposition home or self-care (01) ==
LOC: ER 00:38
DX: G54.2 Cervical root disorders, not elsewhere classified (principal); M54.42 Lumbago with sciatica, left side; M54.41 Lumbago with sciatica, right side; G89.29 Other chronic pain; E11.9 Type 2 diabetes mellitus without complications; I10 Essential (primary) hypertension; F41.9 Anxiety disorder, unspecified; M19.90 Unspecified osteoarthritis, unspecified site; K21.9 Gastro-esophageal reflux disease without esophagitis; E78.00 Pure hypercholesterolemia, unspecified; Z90.49 Acquired absence of other specified parts of digestive tract; Z98.84 Bariatric surgery status
CPT/HCPCS: 36415; 80307; 81001; 96372; 99284; J1885; J2360